=== PATIENT | male | born 1990 | race Two or more races ===

== ENCOUNTER 2019-09-27 04:36 | Emergency (ER) | payer BC, OTHER ==
[~2019-09-27] VITALS: Ht 167.6 cm; Wt 63.5 kg
[2019-09-27 05:41] VITALS: BP 129/82
== END 2019-09-27 05:43 | disposition home or self-care (01) ==
LOC: ER 04:36
DX: S01.331A Puncture wound without foreign body of right ear, initial encounter (principal); S01.332A Puncture wound without foreign body of left ear, initial encounter; F12.10 Cannabis abuse, uncomplicated; F17.210 Nicotine dependence, cigarettes, uncomplicated; X58.XXXA Exposure to other specified factors, initial encounter; Y93.89 Activity, other specified; Y99.8 Other external cause status; Y92.89 Other specified places as the place of occurrence of the external cause